=== PATIENT | female | born 1970 | race Caucasian/White ===

== ENCOUNTER 2016-10-03 16:42 | Emergency (ER) | payer OTHER ==
[2016-10-03 17:06] VITALS: BP 141/86; PULSE 96; RESP 18; TEMP 98.5
--- NOTE | 2016-10-03 17:08 | ED ---
General Adult HPI - General Chief complaint: Needlestick/Exposure Stated complaint: Needlestick-[facility] Time Seen by Provider: 10/03/16 17:03 Source: patient, RN notes reviewed, old records reviewed Mode of arrival: ambulatory Limitations: no limitations - History of Present Illness Initial comments: Patient is a 46 year old female chief complaint of a needle stick injury while performing an autopsy of the morning. Patient reports that her fourth left finger tip was hit with edge of a scalpel during the autopsy. Patient reports that she does have a tiny cut and it did bleed. Patient reports that they were able to obtain blood from the body and patient did test negative for HIV and hepatitis C. Patient reports that she did have a hepatitis B vaccination. She states that she was sent here to have her blood work drawn as well. Patient denies any history of blood borne illnesses. She states that the laceration stopped bleeding at this time. She denies any decreased range of motion of her finger or any swelling or redness.Patient denies any recent fever, chills, shortness of breath, chest pain, back pain, abdominal pain, nausea vomiting, numbness or tingling, dysuria or hematuria, constipation or diarrhea, headaches or visual changes, or any other current symptoms - Related Data Allergies Allergy/AdvReac Type Severity Reaction Status Date / Time No Known Allergies Allergy Verified 10/03/16 17:23 Review of Systems ROS Statement: Those systems with pertinent positive or pertinent negative responses have been documented in the HPI. ROS Other: All systems not noted in ROS Statement are negative. Past Medical History Past Medical History: Hypertension History of Any Multi-Drug Resistant Organisms: None Reported Past Surgical History: Cholecystectomy Past Psychological History: No Psychological Hx Reported Smoking Status: Never smoker Past Alcohol Use History: None Reported Past Drug Use History: None Reported General Exam - General Exam Comments Initial Comments: well appearing 46 year old female, no distress. Limitations: no limitations General appearance: alert, in no apparent distress Head exam: Present: atraumatic, normocephalic, normal inspection Eye exam: Present: normal appearance, PERRL, EOMI. Absent: scleral icterus, conjunctival injection, periorbital swelling ENT exam: Present: normal exam, mucous membranes moist Neck exam: Present: normal inspection. Absent: tenderness, meningismus, lymphadenopathy Respiratory exam: Present: normal lung sounds bilaterally. Absent: respiratory distress, wheezes, rales, rhonchi, stridor Cardiovascular Exam: Present: regular rate, normal rhythm, normal heart sounds. Absent: systolic murmur, diastolic murmur, rubs, gallop, clicks GI/Abdominal exam: Present: soft, normal bowel sounds. Absent: distended, tenderness, guarding, rebound, rigid Extremities exam: Present: normal inspection, full ROM, normal capillary refill. Absent: tenderness, pedal edema, joint swelling, calf tenderness Back exam: Present: normal inspection Neurological exam: Present: alert, oriented X3, CN II-XII intact Psychiatric exam: Present: normal affect, normal mood Skin exam: Present: warm, dry, intact, normal color. Absent: rash Course Vital Signs 10/03/16 17:03 Temperature 98.5 F Pulse Rate 96 Respiratory 18 Rate Blood Pressure 141/86 O2 Sat by Pulse 98 Oximetry Medical Decision Making - Medical Decision Making Patient is a 46 year old female chief complaint of a needle stick injury while performing an autopsy of the morning. Patient reports that her fourth left finger tip was hit with edge of a scalpel during the autopsy. Patient reports that she does have a tiny cut and it did bleed. Patient reports that they were able to obtain blood from the body and patient did test negative for HIV and hepatitis C. Patient reports that she did have a hepatitis B vaccination. Patient's lab work was obtained. Patient does test positive for the hepatitis B surface antigen she would if she is vaccinated. Patient's negative hepatitis B. Patient understands that she is follow-up with primary care provider if she is concerned for other prophylaxis. Patient understands treatment plan will comply. - Lab Data Lab Results 10/03/16 Range/Units 17:15 Hep Bs Antibody POSITIVE H (Negative) Hep C IgG Ab Negative (Negative) Disposition Clinical Impression: Needle stick injury of finger Disposition: HOME SELF-CARE Condition: Good Instructions: Postexposure Prophylaxis (ED), Body Substance Exposure (ED) Additional Instructions: Patient advised that we will inform her of the results once the labs tests are completed. Patient will be instructed to follow-up with primary care provider for further testing if needed in the next few months. Return the emergency Department if any alarming signs or symptoms occur. Referrals: None,Stated [Primary Care Provider] - 1-2 days Time of Disposition: 17:07
[2016-10-03 18:32] LABS: Hepatitis C Virus IgG Index 0.01
[2016-10-03 18:34] LABS: Hepatitis B Surface Antibody POSITIVE (Negative); Hepatitis C Virus IgG Ab Negative (Negative)
[2016-10-04 08:04] LABS: HIV-1/HIV-2 Ab Screen NONREAC (NON REAC)
== END 2016-10-03 17:24 | disposition home or self-care (01) ==
LOC: EC 16:42
DX: S69.92XA Unspecified injury of left wrist, hand and finger(s), initial encounter (principal); Z77.21 Contact with and (suspected) exposure to potentially hazardous body fluids; W46.1XXA Contact with contaminated hypodermic needle, initial encounter; Y99.0 Civilian activity done for income or pay
CPT/HCPCS: 36415; 86318; 86706; 86803; 87389; 99283

== ENCOUNTER → 2018-03-13 | Outpatient (CLI) | payer OTHER ==
--- NOTE | 2018-03-13 11:20 | US ---
EXAMINATION TYPE: US extremity left ankle, Achilles tendon DATE OF EXAM: 03/13/2018 COMPARISON: NONE CLINICAL HISTORY: 47-year-old female left posterior ankle pain for one month, patient felt a knot whi ch has resolved. M76.60 ACHILLES TENDONITIS. TECHNIQUE: Multiple sonographic images of the posterior left ankle for assessment of the Achilles ten don. FINDINGS: The Achilles tendon has normal smooth contour and normal fibrillar echo pattern. No evidence for tear . No effusion within the retrocalcaneal bursa. There is some hypoechogenicity at the Achilles myotend inous junction but comparison images to the contralateral side show a similar appearance. Finding sug gest anisotropy. Scanning was extended up into the mid calf. There is some hypoechogenicity deep to the Achilles tendon along the posterior aspect of the tibiotal ar and posterior subtalar joints with some mild hyperemia. Findings could represent some synovitis. IMPRESSION: 1. Scanning extended up into the mid calf. No evidence for Achilles tendon tear, significant tendinos is, or discrete abnormality of the lower triceps surae musculature. 2. There may be mild synovitis deep to the Achilles tendon in the posterior ankle joint.
== END | disposition home or self-care (01) ==
LOC: RADUSWWP 09:51
PROVIDERS: ATTEND Nurse Practitioner Adult Health
DX: M76.60 Achilles tendinitis, unspecified leg (principal)

== ENCOUNTER → 2018-03-19 | Outpatient (CLI) | payer OTHER ==
--- NOTE | 2018-03-19 13:46 | USB ---
Reason for exam: clinical finding. History: Patient has history of breast cancer at age 30. Family history of breast cancer in mother at age 22, breast cancer in maternal grandmother, and breast cancer in aunt. Physical Findings: Nurse did not find any significant physical abnormalities on exam. US Breast BILAT Right complete breast ultrasound includes all four quadrants, the retroareolar region and axilla. Finding demonstrates a 0.3 x 0.2 x 0.2 cm oval cystic lesion at 10 o'clock this is a cyst with increased through transmission. A 0.5 x 0.2 x 0.6 cm oval solid lesion thought to be a skin lesion. Left limited breast ultrasound including focal area of concern, retroareolar and axilla demonstrates a 0.8 x 0.3 x 0.7 cm oval cystic lesion at 4 o'clock and a 0.5 x 0.3 x 0.6 cm oval cystic lesion at 8 o'clock these are both thought to be skin lesions too. These results were verbally communicated with the patient and result sheet given to the patient on 03/19/18. ASSESSMENT: Incomplete: need additional imaging evaluation, BI-RAD 0 RECOMMENDATION: Follow-up diagnostic mammogram and surgical consultation of both breasts.
--- NOTE | 2018-03-19 13:55 | MM ---
Reason for exam: clinical finding. History: Patient has history of breast cancer at age 30. Family history of breast cancer in mother at age 22, breast cancer in maternal grandmother, and breast cancer in aunt. Physical Findings: Nurse did not find any significant physical abnormalities on exam. MG 3D Diag Mammo W/Cad MADELYN Bilateral CC and MLO view(s) were taken. Technologist: Apurva Chapman, RT (R)(M) No prior studies available for comparison. The breast tissue is heterogeneously dense. This may lower the sensitivity of mammography. There are benign appearing bilateral calcifications. Post therapy changes on the right breast. Multiple skin lesions on ultrasound likelllly epidermal inclusion cysts, surgical consultation is recommended. These results were verbally communicated with the patient and result sheet given to the patient on 03/19/18. ASSESSMENT: Benign, BI-RAD 2 RECOMMENDATION: Routine screening mammogram of both breasts in 1 year.
== END | disposition home or self-care (01) ==
LOC: RADUSWWP 08:58
PROVIDERS: ATTEND Internal Medicine
DX: R92.8 Other abnormal and inconclusive findings on diagnostic imaging of breast (principal); N61.1 Abscess of the breast and nipple
CPT/HCPCS: 77066; 76641; G0279; 77062

== ENCOUNTER → 2018-04-20 | Outpatient (CLI) | payer OTHER ==
[2018-04-20 09:36] VITALS: BP 141/94; PULSE 81; RESP 16; TEMP 98; BMI 31.8
--- NOTE | 2018-04-20 09:51 | P.GSHP ---
History of Present Illness H&P Date: 04/20/18 Patient is a 47 year old white female with a complaint of three abscess areas located in the inner left breast, lateral left breast, and under the area of the right breast. The lesion between the breast is been present for approximately 2 years and she lanced it herself and drained a large amount of purulent material. That under her right breast is been present for at least 2 years. The lesion in the lateral left breast has been present for approximately a year and has been lanced twice. This was done at an urgent care center. At this time the patient is frustrated with the recurrent abscess formation and wishes these to be resolved. She had a bilateral mammogram performed in March 2018 which revealed multiple skin lesions likely epidermal inclusion cysts and no lesions of concern for cancer. She also had an ultrasound done of both of her breast which revealed in the right breast a 0.3 cm cystic lesion at 10:00, and a 0.5 cm solid lesion thought to be a skin lesion. Limited left breast ultrasound revealed a 0.8 cm cystic lesion at 4:00 and a 0.5 cm cystic lesion at 8:00 these are both thought to be skin lesions as well. Patient does have a history of trauma to her right breast approximately 2 months ago. It did become ecchymotic but this has resolved. The patient is status post right breast biopsy at the age of 30 for benign lesion. No nipple discharge or changes of concern. Family history: 1. Mother of breast cancer at the age of 22 2. Biologic grandmother on her mother's side bilateral mastectomy 3. Biologic maternal uncle: Lung, testicular cancer 4. Second maternal uncle: Prostate cancer 5. Third maternal uncle: Testicular cancer 6. 11-year-old daughter: Neuroblastoma she is a survivor Does not know fathers history, he was not named on the certificate Hormonal History: menarche: 13 periods regular : 5, 4 children, 1st miscarrage, first full term at 24, breast fed: all of them BCP: age [age] hormones: none Past surgical history: 1. Cholecystectomy 2. Right breast biopsy 3. Left knee 3 times, right knee 2 times no knee replacements 4. tubligation 5. Medical history: 1. HTN Social History: smoke: none alcohol: none drugs: none - Constitutional Constitutional: Denies chills, Denies fever - EENT Eyes: denies blurred vision, denies pain Ears: bilateral: decreased hearing (right worse than left), deny: tinnitus Ears, nose, mouth and throat: Reports headache, Denies sore throat - Breasts Breasts: bilateral: as per HPI - Cardiovascular Cardiovascular: Reports high blood pressure - Respiratory Respiratory: Denies cough, Denies 7 - Gastrointestinal Gastrointestinal: Denies abdominal pain, Denies diarrhea, Denies nausea, Denies vomiting - Genitourinary (Female) Genitourinary: Reports kidney stones - Menstruation Menstruation: Reports period normal - Musculoskeletal Musculoskeletal: Denies myalgias - Integumentary Integumentary: Denies pruritus, Denies rash - Neurological Neurological: Denies numbness, Denies weakness - Psychiatric Psychiatric: Denies anxiety, Denies depression - Endocrine Comment: working two jobs Endocrine: Reports fatigue, Denies weight change - Hematologic/Lymphatic Comment: none - Allergic/Immunologic Comment: none Past Medical History Past Medical History: Hypertension History of Any Multi-Drug Resistant Organisms: None Reported Past Surgical History: Cholecystectomy Past Psychological History: No Psychological Hx Reported Smoking Status: Never smoker Past Alcohol Use History: None Reported Past Drug Use History: None Reported Medications and Allergies Home Medications Medication Instructions Recorded Confirmed Type Hydrochlorothiazide 25 mg PO QAM 04/20/18 04/20/18 History Lisinopril-Hctz 20-12.5 mg 1 tab PO QAM 04/20/18 04/20/18 History [Zestoretic 20-12.5] Allergies Allergy/AdvReac Type Severity Reaction Status Date / Time No Known Allergies Allergy Verified 04/20/18 09:26 Surgical - Exam - General well developed, well nourished, no distress - Eyes normal ocular movement, no icteric - ENT no hearing loss, no congestion - Neck no masses, trachea midline - Respiratory normal respiratory effort, clear to auscultation - Cardiovascular Rhythm: regular Heart Sounds: normal: S1, S2 - Abdomen Abdomen: soft, non tender, no guarding, no rigid, no rebound - Neurologic no disoriented, no combative - Musculoskeletal normal gait, normal posture - Psychiatric oriented to time, oriented to person, oriented to place, speech is normal, memory intact breast exam: right: Multi-positional exam fibrocystic changes, and 6:00 there is what appears to be a sebaceous cyst Right axilla: No adenopathy of concern Left breast: Upper inner breast that appears to be sebaceous cyst, lateral breast at approximately 3:00 a second sebaceous cyst, multiple positional exam fibrocystic changes Left axilla: No adenopathy of concern Results Mammogram and ultrasound reports reviewed Assessment and Plan Assessment: Impression: 1. Multiple sebaceous cysts bilateral breasts 2. Prior history of breast abscesses 3. Hypertension Plan: 1. Surgical excision of sebaceous cyst 2. Medical management of hypertension Risk and benefits of surgical intervention discussed with the patient and she wishes to proceed. Cc: Dr. Robles, Kaylynn Reis
== END | disposition home or self-care (01) ==
LOC: WWCWWP 09:10
PROVIDERS: ATTEND Surgery
DX: Z53.9 Procedure and treatment not carried out, unspecified reason (principal)

== ENCOUNTER 2018-05-12 07:01 | Day surgery (SDC) | payer OTHER ==
[2018-05-04 15:17] VITALS: BMI 33.8
[~2018-05-12 07:01] MED LIST: HEPARIN SODIUM,PORCINE 5,000 UNIT/ML 1 ML VIAL SQ ONE; LACTATED RINGERS 1,000 ML IV SCH; Pre Op ABX Message 1 EACH MISC MISCELLANE ONE
[2018-05-12] MEDS ORDERED: LIDOCAINE 1% 20 ML VIAL (10MG/ML) FOR IV START INTRADERMA ONE (07:42)
[2018-05-12] MEDS ORDERED: DEXAMETHASONE SOD PHOSPHATE 10 MG/ML 1 ML VIAL IV ONE (07:49)
[2018-05-12] MEDS: ONDANSETRON 4 MG/2 ML VIAL IVP ONE ×2 (07:50→10:40)
[2018-05-12] MEDS ORDERED: ePHEDrine SULFATE/0.9% NACL/PF 50 MG/5 ML SYRINGE IV ONE (08:39)
[2018-05-12] MEDS ORDERED: PROPOFOL 10 MG/ML 20 ML VIAL IV ONE (08:39)
[2018-05-12] MEDS ORDERED: MIDAZOLAM 2 MG/2 ML VIAL ONE (08:39)
[2018-05-12] MEDS ORDERED: LIDOCAINE 1% INJ 10MG/ML (20 ML MDV) ONE (08:39)
[2018-05-12] MEDS ORDERED: HYDROmorphone (PF) 1 MG/ML ONE (08:39)
[2018-05-12] MEDS ORDERED: fentaNYL (PF) 50 MCG/ML 2 ML AMP ONE (08:39)
[2018-05-12] MEDS ORDERED: SODIUM CHLORIDE 0.9% 50 ML with ceFAZolin 2,000 MG IV ONE ×2 (08:49)
[2018-05-12] MEDS ORDERED: HEPARIN SODIUM,PORCINE 5,000 UNIT/ML 1 ML VIAL SQ ONE (09:02)
[2018-05-12] MEDS ORDERED: LIDOCAINE 1% INJ 10MG/ML (20 ML MDV) SQ ONE ×3 (09:13→09:30)
--- NOTE | 2018-05-12 09:35 | P.OP ---
Date of Procedure: 05/12/18 Preoperative Diagnosis: two cystic lesions left breast, one cystic lesion right breast subq area Postoperative Diagnosis: same Procedure(s) Performed: excision of cystic lesions right and left breast Anesthesia: CHARBELA Surgeon: Stephanie Whitehead Estimated Blood Loss (ml): 1 Pathology: other (subq lesions) Condition: stable Disposition: PACU Indications for Procedure: cystic lesions bilateral breast increase in size Operative Findings: cystic lesions bilateral breast Description of Procedure: The patient was taken to the operating room and following induction of anesthesia bilateral breast reprepped and draped in a sterile fashion. The left breast was approached initially. The inferior lesion wasn't approximately 1.5 x 1.2 cm in size excision was carried through the skin and into the subcutaneous tissue. The deep tissues were closed with a 3-0 Vicryl suture followed by closure of the skin with 4-0 Monocryl. The second lesion was in the left breast and this was in the medial aspect of the breast. This was approximately 1 cm x 8 mm. Wide excision was performed. Excision was carried through the skin and subcutaneous tissue. The deep tissues were closed with a 3 -0 Vicryl suture skin was closed with a 4-0 Monocryl and a nylon on the skin. The right breast lesion was also approached this lesion was approximately 1.5 x 1.2 cm in size. Wide excision was performed through the skin and into the subcutaneous tissue. Deep tissues were closed with 3-0 Vicryl suture and the skin was closed with a 4-0 Monocryl. The patient tolerated procedure in stable condition all lesions were sent to pathology. 1% lidocane injected into the area of resection.
--- NOTE | 2018-05-12 09:37 | P.DS ---
Providers Attending physician: Stephanie Whitehead Primary care physician: He Robles Plan - Discharge Summary New Discharge Prescriptions: No Action Lisinopril-Hctz 20-12.5 mg [Zestoretic 20-12.5] 1 tab PO QAM Discharge Medication List Lisinopril-Hctz 20-12.5 mg [Zestoretic 20-12.5] 1 tab PO QAM 04/20/18 [History] Follow up Appointment(s)/Referral(s): Stephanei Whitehead MD [STAFF PHYSICIAN] - 1 Week Activity/Diet/Wound Care/Special Instructions: do not drive today Discharge Disposition: HOME SELF-CARE
[2018-05-12 09:59] VITALS: RESP 16; TEMP 98.2
[2018-05-12] MEDS: HYDROmorphone 1 MG/ML 1 ML SYRINGE IVP ONE ×4 (10:09→10:49)
[2018-05-12] MEDS ORDERED: ACETAMINOPHEN TAB 325 MG TAB PO ONE (11:54)
[2018-05-12 12:26] VITALS: BP 128/74; PULSE 89
== END 2018-05-12 13:04 | disposition home or self-care (01) ==
LOC: OR 07:01
PROVIDERS: ATTEND Surgery
DX: N60.82 Other benign mammary dysplasias of left breast (principal); N60.81 Other benign mammary dysplasias of right breast; Z80.3 Family history of malignant neoplasm of breast; I10 Essential (primary) hypertension; Z79.899 Other long term (current) drug therapy; Z87.442 Personal history of urinary calculi
CPT/HCPCS: 81025; 88304; 19120; J2250; J1644; J1100; J2405; J2001; J3010; J1170; J0690; J2704

== ENCOUNTER → 2018-05-21 | Outpatient (CLI) | payer OTHER ==
[2018-05-21 15:07] VITALS: BP 136/88; PULSE 98; RESP 12; BMI 32.9
--- NOTE | 2018-05-21 15:33 | P.PN ---
Progress Note - Text Progress Note Date: 05/21/18 The patient is a 47-year-old white female who presents for postoperative evaluation status post excision of 3 subcutaneous nodules between the right and left breasts. The patient is doing well at this time without complaints. All areas were consistent with epidermal inclusion cysts. Physical exam: Incision clean and dry right breast Incision clean and dry left breast inferior Incision clean and dry left breast medial, there is a small portion of the stitch that is extruding and this was removed Impression/plan: 1. Bilateral breast epidermal inclusion cyst removed Plan: 1. Follow-up as needed CC: Dr. Robles
== END | disposition home or self-care (01) ==
LOC: WWCWWP 14:58
PROVIDERS: ATTEND Surgery
DX: Z53.9 Procedure and treatment not carried out, unspecified reason (principal)

== ENCOUNTER → 2018-07-15 | Outpatient (CLI) | payer OTHER ==
--- NOTE | 2018-07-15 12:06 | XR ---
Right elbow HISTORY: Right elbow pain, swelling 3 views of the right elbow Bone mineralization, joint spaces and alignment are maintained. No fracture or dislocation. No eviden t joint effusion. IMPRESSION: Normal right elbow
== END ==
LOC: RADXRMAIN 10:14
PROVIDERS: ATTEND Nurse Practitioner Adult Health
DX: M77.11 Lateral epicondylitis, right elbow (principal)

== ENCOUNTER 2018-12-02 07:38 | Emergency (ER) | payer OTHER ==
[2018-12-02 08:07] LABS: Basophils % (A) 1 %; Eosinophils # (A) 0.1 k/uL (0-0.7); Eosinophils % (A) 2 %; HCT 40.8 % (34.0-46.0); Lymphocytes # (A) 1.9 k/uL (1.0-4.8); Lymphocytes % (A) 27 %; MCHC 34.2 g/dL (31.0-37.0); MCV 87.8 fL (80.0-100.0); Mean Platelet Volume 6.5; Monocytes # (A) 0.3 k/uL (0-1.0); Monocytes % (A) 4 %; Neutrophils # (A) 4.6 k/uL (1.3-7.7); Neutrophils % (A) 65 %; Platelet Count 266 k/uL (150-450); RBC 4.65 m/uL (3.80-5.40); RDW 12.1 % (11.5-15.5)
[2018-12-02] MEDS ORDERED: SODIUM CHLORIDE 0.9% 1,000 ML IV ONE ×2 (08:07→08:55)
[2018-12-02] MEDS ORDERED: KETOROLAC 30 MG/ML 1 ML VIAL IVP STA ×2 (08:07→10:46)
[2018-12-02] MEDS ORDERED: HYDROmorphone 0.5 MG/0.5 ML SYRINGE IVP STA (08:11)
[2018-12-02] MEDS ORDERED: ONDANSETRON 4 MG/2 ML VIAL IVP STA (08:11)
[2018-12-02 08:16] LABS: ALT 23 U/L (9-52); AST 18 U/L (14-36); Albumin 4.4 g/dL (3.5-5.0); Alkaline Phosphatase 47 U/L (38-126); Anion Gap 13 mmol/L; Blood Urea Nitrogen 11 mg/dL (7-17); Calcium 9.5 mg/dL (8.4-10.2); Carbon Dioxide 23 mmol/L (22-30); Chloride 102 mmol/L (98-107); Glucose 203 mg/dL (74-99); Potassium 3.7 mmol/L (3.5-5.1); Sodium 138 mmol/L (137-145); Total Bilirubin 0.7 mg/dL (0.2-1.3)
--- NOTE | 2018-12-02 08:17 | ED ---
Abdominal Pain HPI - General Chief Complaint: Abdominal Pain Stated Complaint: kidney stones Time Seen by Provider: 12/02/18 08:07 Source: patient, RN notes reviewed Mode of arrival: ambulatory Limitations: no limitations - History of Present Illness Initial Comments: This is a 48-year-old female presents emergency Department with chief complaint right flank pain. Patient states started around 6 AM this morning. Patient is to send onset of pain. She does have a history kidney symptoms states this feels similar. Patient with slight nausea no vomiting. Patient denies any change in bowel habits including diarrhea constipation. Patient has urinary frequency no noted hematuria. Patient has fevers chills. Patient had prior abdominal surgeries include , tubal ligation. - Related Data Home Medications Medication Instructions Recorded Confirmed Cranberry Fruit Concentrate [Azo 500 mg PO DAILY PRN 12/02/18 12/02/18 Cranberry] Lisinopril-Hctz 20-25 mg 1 tab PO DAILY 12/02/18 12/02/18 [Zestoretic 20-25] metFORMIN HCL [Glucophage] 500 mg PO BID 12/02/18 12/02/18 Previous Rx's Medication Instructions Recorded Hydrocodone/Acetaminophen [[place] 1 tab PO Q6HR PRN #12 tab 12/02/18 5-325] Ketorolac [Toradol] 10 mg PO Q8HR #15 tab 12/02/18 Ondansetron Odt [Zofran Odt] 4 mg PO Q8HR PRN #10 tab 12/02/18 Tamsulosin [Flomax] 0.4 mg PO DAILY #7 cap 12/02/18 Allergies Allergy/AdvReac Type Severity Reaction Status Date / Time No Known Allergies Allergy Verified 12/02/18 07:59 Review of Systems ROS Statement: Those systems with pertinent positive or pertinent negative responses have been documented in the HPI. ROS Other: All systems not noted in ROS Statement are negative. Past Medical History Past Medical History: Diabetes Mellitus, Hypertension Additional Past Medical History / Comment(s): steroids May 2018-tx tendon elbow,jeff breast abscess kidney stones History of Any Multi-Drug Resistant Organisms: None Reported Past Surgical History: Section, Cholecystectomy, Orthopedic Surgery, Tubal Ligation Additional Past Surgical History / Comment(s): right breast surgery: 2000,3 left knee surg,2 rt knee surg. Past Anesthesia/Blood Transfusion Reactions: No Reported Reaction Past Psychological History: No Psychological Hx Reported Smoking Status: Never smoker Past Alcohol Use History: None Reported Past Drug Use History: None Reported - Past Family History Mother Family Medical History: Cancer Additional Family Medical History / Comment(s): breast cancer: at the age of 22 General Exam General appearance: alert, in no apparent distress, other (Patient appears uncomfortable) Head exam: Present: atraumatic, normocephalic, normal inspection Eye exam: Present: normal appearance, PERRL, EOMI. Absent: scleral icterus, conjunctival injection, periorbital swelling ENT exam: Present: normal exam, mucous membranes moist Respiratory exam: Present: normal lung sounds bilaterally. Absent: respiratory distress, wheezes, rales, rhonchi, stridor Cardiovascular Exam: Present: regular rate, normal rhythm, normal heart sounds. Absent: systolic murmur, diastolic murmur, rubs, gallop, clicks GI/Abdominal exam: Present: soft, tenderness (Mild right flank), normal bowel sounds. Absent: distended, guarding, rebound, rigid Back exam: Present: CVA tenderness (R). Absent: CVA tenderness (L) Skin exam: Present: warm, dry, intact, normal color. Absent: rash Course Vital Signs 12/02/18 12/02/18 07:42 10:05 Temperature 97.7 F 98.7 F Pulse Rate 85 66 Respiratory 26 H 18 Rate Blood Pressure 165/85 107/73 O2 Sat by Pulse 99 93 L Oximetry - Reevaluation(s) Reevaluation #1: 12/02/18 08:56 Patient reevaluated states that her pain has greatly improved at this time. Patient updated on current lab results and x-ray results. Medical Decision Making - Medical Decision Making 40-year-old female presented for right flank pain. Patient had laboratory, x- ray and urinalysis. Urinalysis reveals multiple red cells. She is nitrite positive secondary to taking Azo there is no wbc's. Patient not be treated for urinary tract infection as there is no evidence. Patient has a history kidney stones and symptoms are consistent. Patient we discharged with pain medication, Flomax, Toradol. Return parameters were discussed. - Lab Data Result diagrams: 12/02/18 07:50 12/02/18 07:50 Lab Results 12/02/18 12/02/18 12/02/18 Range/Units 07:50 07:50 09:20 WBC 7.0 (3.8-10.6) k/uL RBC 4.65 (3.80-5.40) m/uL Hgb 14.0 (11.4-16.0) gm/dL Hct 40.8 (34.0-46.0) % MCV 87.8 (80.0-100.0) fL MCH 30.0 (25.0-35.0) pg MCHC 34.2 (31.0-37.0) g/dL RDW 12.1 (11.5-15.5) % Plt Count 266 (150-450) k/uL Neutrophils % 65 % Lymphocytes % 27 % Monocytes % 4 % Eosinophils % 2 % Basophils % 1 % Neutrophils # 4.6 (1.3-7.7) k/uL Lymphocytes # 1.9 (1.0-4.8) k/uL Monocytes # 0.3 (0-1.0) k/uL Eosinophils # 0.1 (0-0.7) k/uL Basophils # 0.0 (0-0.2) k/uL Sodium 138 (137-145) mmol/L Potassium 3.7 (3.5-5.1) mmol/L Chloride 102 (98-107) mmol/L Carbon Dioxide 23 (22-30) mmol/L Anion Gap 13 mmol/L BUN 11 (7-17) mg/dL Creatinine 0.59 (0.52-1.04) mg/dL Est GFR (CKD-EPI)AfAm >90 (>60 ml/min/1.73 sqM) Est GFR (CKD-EPI)NonAf >90 (>60 ml/min/1.73 sqM) Glucose 203 H (74-99) mg/dL Calcium 9.5 (8.4-10.2) mg/dL Total Bilirubin 0.7 (0.2-1.3) mg/dL AST 18 (14-36) U/L ALT 23 (9-52) U/L Alkaline Phosphatase 47 (38-126) U/L Total Protein 7.0 (6.3-8.2) g/dL Albumin 4.4 (3.5-5.0) g/dL Urine Color Dark Brown Urine Appearance Cloudy H (Clear) Urine pH 5.5 (5.0-8.0) Ur Specific [place] 1.020 (1.001-1.035) Urine Protein Trace H (Negative) Urine Glucose (UA) Negative (Negative) Urine Ketones 1+ H (Negative) Urine Blood Moderate H (Negative) Urine Nitrite Positive H (Negative) Urine Bilirubin Negative (Negative) Urine Urobilinogen 2.0 (<2.0) mg/dL Ur Leukocyte Esterase Negative (Negative) Urine RBC 90 H (0-5) /hpf Ur Squamous Epith Cells 3 (0-4) /hpf Urine Bacteria Rare H (None) /hpf Urine Mucus Occasional H (None) /hpf Disposition Clinical Impression: Kidney stone Disposition: HOME SELF-CARE Condition: Stable Instructions (If sedation given, give patient instructions): Kidney Stones (ED) Additional Instructions: Please return to the Emergency Department if symptoms worsen or any other concerns. Prescriptions: Tamsulosin [Flomax] 0.4 mg PO DAILY #7 cap Hydrocodone/Acetaminophen [[place] 5-325] 1 tab PO Q6HR PRN #12 tab PRN Reason: Pain Ketorolac [Toradol] 10 mg PO Q8HR #15 tab Ondansetron Odt [Zofran Odt] 4 mg PO Q8HR PRN #10 tab PRN Reason: Nausea Is patient prescribed a controlled substance at d/c from ED?: Yes When asked, does pt state using other controlled substances?: No If prescribed controlled substance>3 days was MAPS reviewed?: Prescribed <3 Days If opioid is for acute pain is fill amount 7 days or less?: Yes If Rx opioid, was Start Talking consent form obtained?: Yes Referrals: He Robles MD [Primary Care Provider] - 1-2 days Time of Disposition: 10:49
--- NOTE | 2018-12-02 08:43 | XR ---
EXAMINATION TYPE: XR KUB DATE OF EXAM: 12/02/2018 8:39 AM CLINICAL HISTORY: History of bilateral kidney stones presents with right flank pain. TECHNIQUE: Two Upright KUB images of the abdomen are obtained. COMPARISON: None. FINDINGS: Scattered gas is seen in non-distended small bowel loops. Gas and fecal material is seen in non-distended colon. Rounded densities in bilateral pelvis favor phleboliths. Cholecystectomy clips are present. No pneumoperitoneum is seen. Lung bases are clear. Osseous structures are intact. IMPRESSION: Overall nonobstructive bowel gas pattern. No definite nephrolithiasis.
[2018-12-02 10:07] VITALS: RESP 18; TEMP 98.7
[2018-12-02 10:31] LABS: Appearance,Urine Cloudy (Clear); Bacteria,Urine Rare /hpf; Bilirubin,Urine Negative (Negative); Blood,Urine Moderate (Negative); Color,Urine Dark Brown; Glucose,Urine (UA) Negative (Negative); Ketones,Urine 1+ (Negative); Leukocyte Esterase,Urine Negative (Negative); Mucus,Urine Occasional /hpf; Nitrite,Urine Positive (Negative); PH, Urine 5.5 (5.0-8.0); Protein,Urine Trace (Negative); RBC,Urine 90 /hpf (0-5); Squamous Epithelial Cell,Urine 3 /hpf (0-4)
[2018-12-02 10:56] VITALS: BP 121/72; PULSE 77
== END 2018-12-02 11:02 | disposition home or self-care (01) ==
LOC: EC 07:38
DX: N20.0 Calculus of kidney (principal); E11.9 Type 2 diabetes mellitus without complications; I10 Essential (primary) hypertension; Z90.49 Acquired absence of other specified parts of digestive tract; Z98.51 Tubal ligation status; Z79.84 Long term (current) use of oral hypoglycemic drugs; Z79.899 Other long term (current) drug therapy
CPT/HCPCS: 36415; 80053; 85025; 81001; 74018; 99284; 96374; 96375 ×2; 96376; 96361 ×2; J2405; J1885; J1170

== ENCOUNTER → 2019-04-30 | Outpatient (CLI) | payer OTHER ==
--- NOTE | 2019-04-30 14:44 | US ---
EXAMINATION TYPE: US thyroid st tissue head/neck DATE OF EXAM: 04/30/2019 COMPARISON: NONE CLINICAL HISTORY: R22.0 mass and lump. Hypoechoic mass posterior neck measuring 2.5 x 0.8 x 1.9cm. This is not a typical lymph node. This i s solid. Consider additional evaluation with CT neck with contrast. IMPRESSION: 1. Hypoechoic mass which is in determinate.
== END | disposition home or self-care (01) ==
LOC: RADUSWWP 08:11
PROVIDERS: ATTEND Internal Medicine
DX: R22.1 Localized swelling, mass and lump, neck (principal)
CPT/HCPCS: 76536

== ENCOUNTER → 2019-05-04 | Outpatient (CLI) | payer OTHER ==
[2019-05-04 17:56] LABS: African American GFR (CKD) 124.9 (60.0-200.0)
== END | disposition home or self-care (01) ==
LOC: LABWHC1 10:25
PROVIDERS: ATTEND Nurse Practitioner Adult Health
DX: R68.89 Other general symptoms and signs (principal)
CPT/HCPCS: 36415; 82565; 84520

== ENCOUNTER → 2019-06-08 | Outpatient (CLI) | payer OTHER ==
--- NOTE | 2019-06-08 10:37 | CT ---
EXAMINATION TYPE: CT soft tissue neck w con DATE OF EXAM: 06/08/2019 HISTORY: Abnormal clinical findings. Patient states there is a lump growing on the back of her neck. Finding is marked with a palpable BB marker. COMPARISON: NONE CT DLP: 351.30 mGycm. Automated Exposure Control for Dose Reduction was Utilized. TECHNIQUE: CT scan of the neck is performed with IV Contrast, patient injected with 100 ml mL of Iso zohreh 300, axial images are obtained, coronal and sagittal reformatted images are reviewed. FINDINGS: Airway: No gross abnormality seen. Parotid/submandibular glands: Enhancing left parotid gland mass measures 1.0 x 0.7 cm and is seen wit hin the superficial lobe of the left parotid gland. No definitive macroscopic fat to confirm an intra parotid lymph node. This lesion is indeterminate at this time. Carotid/Vascular Structures: There is a conventional three-vessel branch pattern of the aortic arch. No hemodynamically significant stenosis is seen of the carotid or vertebral vasculature. The right ve rtebral artery is slightly dominant. Osseous Structures: Straightening of usual cervical lordosis that may relate to muscular sprain/spasm or patient positioning. Very minimal multilevel uncovertebral hypertrophy of the cervical spine. No high-grade stenosis. Other: Corresponding to the palpable abnormality of the groin lump of the back of the patient's neck there is a right paracentral 2.2 x 1.2 cm nearly entirely fat attenuated lipomatous lesion on series 3 image 54. At the cranial margin of this there is a soft tissue nodule measuring 6 mm marked on imag e 58. This does not appear to represent avascular structure on coronal or sagittal images. This is lo cated approximately 1 cm deep to the skin surface. IMPRESSION: 1. Lipomatous lesion corresponds to the palpable abnormality of the right paracentral soft tissues of the neck. This is almost entirely fat containing and likely represents a benign lipoma however there is a 6 mm soft tissue nodule seen at the cranial aspect. If there is continued interval growth MRI w ith and without contrast could assess for enhancement of the nodular component. This is overall favor ed to be benign at this time. 2. 1.0 cm left parotid enhancing indeterminant lesion. MRI could also assess characteristics of this lesion as this does not definitively contain macroscopic fat and does not appear as an intraparotid l ymph node.
== END | disposition home or self-care (01) ==
LOC: RADCTMAIN 08:00
PROVIDERS: ATTEND Internal Medicine
DX: K11.8 Other diseases of salivary glands (principal); R93.89 Abnormal findings on diagnostic imaging of other specified body structures
CPT/HCPCS: 70491; Q9967

== ENCOUNTER → 2020-06-08 | Outpatient (CLI) | payer OTHER ==
--- NOTE | 2020-06-09 11:49 | XR ---
Left knee HISTORY: Left knee pain 3 views the left knee There is joint space loss in the medial compartment. Bone mineralization and alignment are maintained . No fracture or dislocation. No evident joint effusion. IMPRESSION: Joint space loss may be indicative of mild arthropathy, consider alternate imaging.
== END | disposition home or self-care (01) ==
LOC: RAD 16:02
PROVIDERS: ATTEND Nurse Practitioner Adult Health
DX: M25.862 Other specified joint disorders, left knee (principal)

== ENCOUNTER → 2020-06-30 | Outpatient (CLI) | payer OTHER ==
--- NOTE | 2020-06-30 22:21 | MR ---
EXAMINATION TYPE: MR knee LT wo con DATE OF EXAM: 06/30/2020 COMPARISON: Left knee x-ray June 08, 2020 HISTORY: Lt knee posterior pain, hx of prior surgery, xrays on pacs TECHNIQUE: Multiplanar, multisequence imaging of the left knee is performed without IV contrast. FINDINGS: MEDIAL MENISCUS: Posterior horn is intact without tear. Anterior horn is markedly truncated in size, presumed product of prior near-complete surgical removal. LATERAL MENISCUS: Anterior and posterior horns are intact without tear. CRUCIATE LIGAMENTS: The anterior and posterior cruciate ligaments are intact and unremarkable. COLLATERAL LIGAMENTS: The medial collateral ligament and lateral collateral ligament complex are inta ct and unremarkable. EXTENSOR MECHANISM: Visualized quadriceps and patellar tendons are intact. EFFUSION: No significant suprapatellar joint effusion. POPLITEAL CYST: No popliteal/magana cyst. TRICOMPARTMENT SPACES: Mild narrowing patellofemoral and medial tibiofemoral compartments. No signifi cant spurring. CARTILAGE: Tricompartment articular cartilage is preserved. BONE MARROW SIGNAL: No focal abnormal marrow signal is appreciated. OTHER: No additional significant abnormality is appreciated. IMPRESSION: Evidence of prior surgery anterior horn medial meniscus. No recurrent meniscal or ligamen tous tear is seen.
== END | disposition home or self-care (01) ==
LOC: RADMRIMAIN 19:24
PROVIDERS: ATTEND Nurse Practitioner Adult Health
DX: M25.562 Pain in left knee (principal); Z98.890 Other specified postprocedural states

== ENCOUNTER → 2020-07-11 | Outpatient (CLI) | payer OTHER | END | disposition home or self-care (01) | LOC: LABWHC1 12:25 | PROVIDERS: ATTEND Nurse Practitioner Adult Health | DX: Z20.828 Contact with and (suspected) exposure to other viral communicable diseases (principal); J06.9 Acute upper respiratory infection, unspecified | CPT/HCPCS: U0003; C9803 ==

== ENCOUNTER → 2021-04-03 | Outpatient (CLI) | payer OTHER ==
--- NOTE | 2021-04-03 13:57 | US ---
EXAMINATION TYPE: US mass soft tissue chest/back DATE OF EXAM: 04/03/2021 COMPARISON: NONE CLINICAL HISTORY: M25.512 Pain in left shoulder. Palpable left upper back x 2 weeks Area of concern scanned. Prominent area seen, nonvascular = 5.1 x 3.7 x 2.1 cm. Contralateral images taken. IMPRESSION: 1. Large circumscribed homogenous area may be a lipoma at the level of concern.
== END | disposition home or self-care (01) ==
LOC: RADUSWWP 10:48
PROVIDERS: ATTEND Family Medicine
DX: M25.512 Pain in left shoulder (principal); R22.32 Localized swelling, mass and lump, left upper limb

== ENCOUNTER → 2021-04-16 | Day surgery (SDC) | payer OTHER ==
[2021-04-13 09:37] VITALS: BMI 31.3
[~2021-04-16] MED LIST changes: +BUPIVACAINE (PF) 0.25% 30 ML VIAL SQ ONE; +DEXAMETHASONE SOD PHOSPHATE 4 MG/ML 1 ML VIAL IV ONE; -HEPARIN SODIUM,PORCINE 5,000 UNIT/ML 1 ML VIAL SQ ONE; +LIDOCAINE 1% (10MG/ML) FOR IV START INTRADERMA ONE; +LIDOCAINE 1% INJ 10MG/ML (20 ML MDV) ONE; +MIDAZOLAM 2 MG/2 ML VIAL ONE; +ONDANSETRON 4 MG/2 ML VIAL IVP ONE; +PHENYLEPHRINE-0.9% NACL SYG 1,000 MCG/10 ML SYRINGE ONE; +PROPOFOL 10 MG/ML 20 ML VIAL IV ONE; +ROCURONIUM 10 MG/ML (5 ML VIAL) IV ONE; +SODIUM CHLORIDE 0.9% 100 ML with ceFAZolin 2,000 MG IV ONE; +SUCCINYLCHOLINE CHLORIDE 100 MG/5 ML SYR IV ONE; +fentaNYL (PF) 50 MCG/ML 2 ML AMP ONE; +traMADol 50 MG TAB ONE; +traMADol 50 MG TAB PO ONE
[2021-04-16 11:31] VITALS: RESP 16
[2021-04-16 11:46] LABS: Glucose,Whole Blood 151 mg/dL (75-99)
--- NOTE | 2021-04-16 14:02 | P.OP ---
Date of Procedure: 04/16/21 Preoperative Diagnosis: Lipoma left scapula and neck Postoperative Diagnosis: Lipoma left subscapular and neck Procedure(s) Performed: Excision of lipoma left subscapular and neck Anesthesia: LATOYA Surgeon: Ashley Burdick Estimated Blood Loss (ml): 5 Pathology: other Condition: stable Disposition: PACU Indications for Procedure: Patient presented with symptomatic lipoma Description of Procedure: The patient's taken the operative suite where she is prepped and draped in the usual sterile manner under general endotracheal anesthetic. Local anesthetic was instilled in the skin and subcutaneous tissues overlying each lipoma. An incision was then made over the lipoma under the left scapula. Dissection was carried out through the subcutaneous tissue and the lipoma was not encountered. It appeared it was submuscular so the trapezius and rhomboid were bluntly opened along the direction of their fibers. The lipoma was subscapular and laying along the ribs. It was dissected free. Small bleeding points were controlled with electrocautery. The muscle layers were allowed to fall back together and reapproximated using 3-0 Vicryl. Subcutaneous tissue was reapproximated using 3-0 Vicryl. The skin was closed with 4-0 Vicryl in a subcuticular manner. The lipoma in the neck was dissected free. Small bleeding points were controlled with electrocautery. The subcutaneous tissues and skin were closed in a similar manner. Steri-Strips and dressings were applied. She tolerated the procedure without difficulty and was taken to recovery room in satisfactory condition. According to or personnel, all counts were correct. Plan - Discharge Summary Discharge Rx Participant: Yes New Discharge Prescriptions: New traMADol HCL 1 - 2 mg PO Q6HR PRN #20 tablet PRN Reason: Pain No Action metFORMIN HCL [Glucophage] 1,000 mg PO HS lisinopriL [Prinivil] 20 mg PO DAILY hydroCHLOROthiazide [Hydrodiuril] 25 mg PO DAILY PRN PRN Reason: Edema Discharge Medication List metFORMIN HCL [Glucophage] 1,000 mg PO HS 12/02/18 [History] hydroCHLOROthiazide [Hydrodiuril] 25 mg PO DAILY PRN 04/13/21 [History] lisinopriL [Prinivil] 20 mg PO DAILY 04/13/21 [History] traMADol HCL 1 - 2 mg PO Q6HR PRN #20 tablet 04/16/21 [Rx] Activity/Diet/Wound Care/Special Instructions: Keeps the current dressings on until Friday. Then the dressing may be removed and you may shower. Ice to the incisions for 24-48 hours. The Steri- Strips may be removed in 1 week. You may take Tylenol or Motrin instead of the pain pills. Call if questions or concerns Discharge Disposition: HOME SELF-CARE
[2021-04-16 14:09] VITALS: TEMP 97.6
[2021-04-16] MEDS: HYDROmorphone 0.5 MG/0.5 ML SYRINGE IVP PRN ×3 (14:15→14:58)
[2021-04-16 14:37] LABS: Glucose,Whole Blood 176 mg/dL (75-99)
[2021-04-16 16:21] VITALS: BP 147/87; PULSE 79
== END | disposition home or self-care (01) ==
LOC: OR 10:57
PROVIDERS: ATTEND Surgery
DX: D17.1 Benign lipomatous neoplasm of skin and subcutaneous tissue of trunk (principal); D17.0 Benign lipomatous neoplasm of skin and subcutaneous tissue of head, face and neck; E11.9 Type 2 diabetes mellitus without complications; I10 Essential (primary) hypertension; Z79.84 Long term (current) use of oral hypoglycemic drugs; Z79.899 Other long term (current) drug therapy
CPT/HCPCS: 81025; 88304; 11406; 11422; J2250; J1100; J2405; J0690; J2001; J3010; J2370; J0330; J2704; J1170

== ENCOUNTER → 2022-04-12 | Outpatient (CLI) | payer OTHER ==
[2022-04-12 22:40] LABS: Potassium 3.6 mmol/L (3.5-5.5)
[2022-04-12 22:41] LABS: Basophils # (A) 0.05 X 10*3/uL (0.00-0.10); Basophils % (A) 0.6 %; Eosinophils # (A) 0.17 X 10*3/uL (0.04-0.35); HCT 37.7 % (37.2-46.3); Immature Grans, Automated 0.2 %; Lymphocytes # (A) 2.17 X 10*3/uL (0.90-5.00); Lymphocytes % (A) 25.3 %; MCH 28.5 pg (27.0-32.0); MCHC 31.8 g/dL (32.0-37.0); MCV 89.5 fL (80.0-97.0); Mean Platelet Volume 9.8 fL (9.5-12.2); Monocytes # (A) 0.69 X 10*3/uL (0.20-1.00); NRBC Per 100 WBC 0 /100 WBCS (0.0-0.0); Neutrophils # (A) 5.48 X 10*3/uL (1.80-7.70); Neutrophils % (A) 63.9 %; Platelet Count 341 X 10*3/uL (140-440); RBC 4.21 X 10*6/uL (4.10-5.20); RDW 13.6 % (11.5-14.5); WBC 8.58 X 10*3/uL (4.50-10.00)
== END | disposition home or self-care (01) ==
LOC: LABWHC1 15:24
PROVIDERS: ATTEND Orthopaedic Surgery
DX: Z01.812 Encounter for preprocedural laboratory examination (principal); E03.9 Hypothyroidism, unspecified; M23.92 Unspecified internal derangement of left knee
CPT/HCPCS: 36415; 80051; 85025

== ENCOUNTER 2022-04-18 10:56 | Day surgery (SDC) | payer OTHER ==
[2022-04-16 14:47] VITALS: BMI 33.6
--- NOTE | 2022-04-18 05:23 | HP ---
HISTORY AND PHYSICAL DATE OF SURGERY: 04/18/2022. HISTORY OF PRESENT ILLNESS: Stefany Morgan is a 51-year-old patient seen with progressive left knee pain. We discussed options. She elected to proceed with arthroscopy. Consent is obtained. PAST MEDICAL HISTORY: Hypertension, mep-gyrwczf-fuiqornbj diabetes. PAST SURGICAL HISTORY: Knee arthroscopy, cholecystectomy, section, breast surgery. DAILY MEDICATIONS: 1. Lisinopril/hydrochlorothiazide. 2. Metformin. ALLERGIES: None. SOCIAL HISTORY: She denies tobacco use. PHYSICAL EVALUATION OF THE LEFT KNEE: Range of motion 0 to 130. Mild effusion. Tenderness, medial joint line. Positive medial Tanja's. Ligaments stable. Hip rotation without pain. Distal neurovascular exam intact. RADIOGRAPHS: Left knee radiographs revealed mild osteoarthritis. MRI of left knee revealed a displaced medial meniscal tear and effusion. IMPRESSION: 1. Internal derangement of left knee with medial meniscal tear. 2. Hypertension. 3. Nku-golhvva-srzsxmwer diabetes. PLAN: Left knee arthroscopy with partial medial meniscectomy and debridement. MMODL / IJN: [id number] /
[~2022-04-18 10:56] MED LIST changes: -BUPIVACAINE (PF) 0.25% 30 ML VIAL SQ ONE; -DEXAMETHASONE SOD PHOSPHATE 4 MG/ML 1 ML VIAL IV ONE; -LIDOCAINE 1% (10MG/ML) FOR IV START INTRADERMA ONE; -LIDOCAINE 1% INJ 10MG/ML (20 ML MDV) ONE; -MIDAZOLAM 2 MG/2 ML VIAL ONE; -PHENYLEPHRINE-0.9% NACL SYG 1,000 MCG/10 ML SYRINGE ONE; -PROPOFOL 10 MG/ML 20 ML VIAL IV ONE; -Pre Op ABX Message 1 EACH MISC MISCELLANE ONE; -ROCURONIUM 10 MG/ML (5 ML VIAL) IV ONE; -SODIUM CHLORIDE 0.9% 100 ML with ceFAZolin 2,000 MG IV ONE; -SUCCINYLCHOLINE CHLORIDE 100 MG/5 ML SYR IV ONE; +fentaNYL (PF) 50 MCG/ML 2 ML AMP IV PRN; -fentaNYL (PF) 50 MCG/ML 2 ML AMP ONE; -traMADol 50 MG TAB ONE; -traMADol 50 MG TAB PO ONE
[2022-04-18 12:15] LABS: Glucose,Whole Blood 100 mg/dL (70-110)
[2022-04-18] MEDS ORDERED: LACTATED RINGERS 1,000 ML IV ONE (12:15)
[2022-04-18] MEDS ORDERED: ONDANSETRON 4 MG/2 ML VIAL ONE (12:19)
[2022-04-18] MEDS ORDERED: DEXAMETHASONE SOD PHOSPHATE 4 MG/ML 1 ML VIAL IVP ONE (12:21)
[2022-04-18] MEDS ORDERED: HYDROmorphone (PF) 1 MG/ML ONE (12:37)
[2022-04-18] MEDS ORDERED: MIDAZOLAM 2 MG/2 ML VIAL ONE (12:37)
[2022-04-18] MEDS ORDERED: LIDOCAINE 2% INJ 20 MG/ML (2 ML VIAL) ONE (12:37)
[2022-04-18] MEDS ORDERED: fentaNYL (PF) 50 MCG/ML 2 ML AMP ONE (12:37)
[2022-04-18] MEDS ORDERED: BUPIVACAINE (PF) 0.25% 30 ML VIAL SQ ONE ×3 (12:37→13:14)
[2022-04-18] MEDS ORDERED: PROPOFOL 10 MG/ML 20 ML VIAL IV ONE (12:37)
--- NOTE | 2022-04-18 13:27 | P.OP ---
Date of Procedure: 04/18/22 Preoperative Diagnosis: Internal derangement left knee Postoperative Diagnosis: 1. Tear medial and lateral meniscus left knee 2. 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 Reactive synovitis medial, lateral and suprapatellar compartments left knee Procedure(s) Performed: 1. Arthroscopic partial medial and lateral meniscectomy left knee 2. Arthroscopic chondroplasty medial femoral condyle left knee 3. Arthroscopic partial synovectomy medial, lateral and suprapatellar compartments left knee Anesthesia: CHARBELA, local Surgeon: Julio Murillo Estimated Blood Loss (ml): 8 Pathology: none sent Condition: stable Disposition: PACU Indications for Procedure: 51-year-old patient seen with progressive left knee pain. After treatment options were discussed, she elected to proceed with arthroscopy. Operative Findings: See description of procedure Description of Procedure: Patient was taken to the operative suite. Patient underwent a general anesthetic by the department of anesthesia. Patient was given preoperative antibiotics. The left lower extremity was placed in a well-padded arthroscopic leg nguyen. The left leg was prepped and draped in the normal sterile orthopedic fashion. A lateral parapatellar and suprapatellar incision was made. Trochars were inserted. Arthroscopy was initiated. Suprapatellar pouch revealed diffuse thick reactive synovitis. The patellofemoral joint appeared to articulate congruently. There was grade 1 chondromalacia of the patella with no osteochondral tears present. The scope was guided into the medial gutter. No loose bodies or plica were identified The scope was then guided into the medial compartment. A medial parapatellar incision was made. Trocar inserted followed by probe. There was a radial tear posterior medial meniscus. There were grade 1/2 chondromalacia changes medial femoral condyle with some osteochondral flap tears present. There was some thick reactive synovitis anteriorly. I performed a partial medial meniscectomy. I performed a chondroplasty of the medial femoral condyle. I performed a partial synovectomy. The residual meniscus was stable. The residual osteochondral surface was stable. There was good decompre ssion of the synovitis. Scope and probe were then guided into the intercondylar notch. Cruciates were identified, probed and found to be stable. The scope and probe were then guided into lateral compartment.. There was a radial tear posterior horn lateral meniscus. There was some thick reactive some-itis anteriorly. There was no chondromalacia present. I performed a partial lateral meniscectomy. I performed a partial synovectomy. The residual meniscus was probed and was found to be stable. There was good decompression of the synovitis. The scope was in guided back into the suprapatellar compartment. I introduced a motorized shaver into the suprapatellar compartment. I debrided some piecemeal fragments of meniscus I encountered. I performed a partial synovectomy. The shaver was removed. There was good decompression of the synovitis. I took one more look around the entire knee, no residual debris. Instruments were now removed from the joint. The joint was infiltrated with .25% Marcaine. Steri-Strips were applied to the portal sites. Sterile dressings were applied. The patient was placed into a KASH hose. No tourniquet was utilized. The patient was awakened, transferred to a bed and taken to recovery stable satisfactory condition.
[2022-04-18] MEDS: HYDROmorphone 0.5 MG/0.5 ML SYRINGE IVP PRN ×2 (13:28→14:04)
[2022-04-18 13:29] VITALS: RESP 16; TEMP 97.6
[2022-04-18] MEDS ORDERED: KETOROLAC 15 MG/ML 1 ML VIAL IVP ONE (13:36)
[2022-04-18] MEDS ORDERED: METOCLOPRAMIDE 5 MG/ML 2 ML VIAL IVP ONE (14:29)
[2022-04-18 15:07] VITALS: BP 134/84; PULSE 75
[2022-04-18] MEDS ORDERED: HYDROcodone/APAP 5-325MG 1 EACH TAB PO ONE (15:08)
[2022-04-18] MEDS ORDERED: HYDROcodone/APAP 5-325MG 1 EACH TAB ONE (15:09)
== END 2022-04-18 16:01 | disposition home or self-care (01) ==
LOC: OR 10:56
PROVIDERS: ATTEND Orthopaedic Surgery
DX: S83.282A Other tear of lateral meniscus, current injury, left knee, initial encounter (principal); S83.242A Other tear of medial meniscus, current injury, left knee, initial encounter; M94.262 Chondromalacia, left knee; M65.9 Synovitis and tenosynovitis, unspecified; M23.92 Unspecified internal derangement of left knee; I10 Essential (primary) hypertension; E11.9 Type 2 diabetes mellitus without complications; Z79.4 Long term (current) use of insulin; Z79.84 Long term (current) use of oral hypoglycemic drugs; Z79.899 Other long term (current) drug therapy; X58.XXXA Exposure to other specified factors, initial encounter
CPT/HCPCS: 29880; 81025; J2250; J1100; J2765; J2405; J0690; J3010; J1170 ×2; J1885; J2704; J2001

== ENCOUNTER → 2022-10-19 | Outpatient (CLI) | payer OTHER ==
[2022-10-19 17:42] LABS: Basophils # (A) 0.03 X 10*3/uL (0.00-0.10); Basophils % (A) 0.6 %; Eosinophils # (A) 0.16 X 10*3/uL (0.04-0.35); HCT 40.1 % (37.2-46.3); HGB 12.4 g/dL (12.0-15.0); Immature Grans, Automated 0.2 %; Lymphocytes # (A) 1.81 X 10*3/uL (0.90-5.00); MCH 28.2 pg (27.0-32.0); MCHC 30.9 g/dL (32.0-37.0); MCV 91.3 fL (80.0-97.0); Mean Platelet Volume 9.6 fL (9.5-12.2); Monocytes # (A) 0.38 X 10*3/uL (0.20-1.00); Monocytes % (A) 7.1 %; NRBC Per 100 WBC 0 /100 WBCS (0.0-0.0); Neutrophils # (A) 2.93 X 10*3/uL (1.80-7.70); Neutrophils % (A) 55.1 %; Platelet Count 307 X 10*3/uL (140-440); RBC 4.39 X 10*6/uL (4.10-5.20); RDW 14.4 % (11.5-14.5); WBC 5.32 X 10*3/uL (4.50-10.00)
[2022-10-19 17:49] LABS: ALT 14 U/L (8-44); AST 15 U/L (13-35); African American GFR (CKD) 115.3 (60.0-200.0); Albumin 4.2 g/dL (3.8-4.9); Albumin/Globulin Ratio 1.59 (1.60-3.17); Alkaline Phosphatase 54 U/L (41-126); BUN/Creat Ratio 23.68 Ratio (12.00-20.00); Blood Urea Nitrogen 16.6 mg/dL (9.0-27.0); Calcium 9.1 mg/dL (8.7-10.3); Carbon Dioxide 26.5 mmol/L (20.0-27.5); Chloride 103 mmol/L (96-109); Chol/HDL Ratio 6.17 Ratio; Globulin 2.6 g/dL (1.6-3.3); Glucose 110 mg/dL (70-110); LDL Cholesterol,Calculated 217.6 mg/dL (0.0-131.0); Non-African American GFR(CKD) 99.4 (60.0-200.0); Potassium 4.3 mmol/L (3.5-5.5); Sodium 139 mmol/L (135-145); Total Protein 6.8 g/dL (6.2-8.2)
== END | disposition home or self-care (01) ==
LOC: LABWHC1 09:23
PROVIDERS: ATTEND Family Medicine
DX: Z00.00 Encounter for general adult medical examination without abnormal findings (principal); E11.9 Type 2 diabetes mellitus without complications
CPT/HCPCS: 36415; 80053; 80061; 82043; 82570; 83036; 85025

== ENCOUNTER → 2023-02-05 | Outpatient (CLI) | payer OTHER ==
--- NOTE | 2023-02-06 07:53 | MM ---
Reason for Exam: Screening (asymptomatic). Last mammogram was performed 4 year(s) and 11 month(s) ago. Patient History: Menarche at age 13. First Full-Term at age 23. Premenopausal. Maternal grandmother had breast cancer. Maternal aunt had breast cancer. Mother had breast cancer, age 22. Last menstrual period: 01/27/2023 Risk Values: Rose Mary 5 year model risk: 2.0%. NCI Lifetime model risk: 15.9%. Prior Study Comparison: 03/19/2018 Bilateral Diagnostic Ultrasound, [facility]. 03/19/2018 Bilateral Diagnostic Mammogram, [facility]. Tissue Density: The breast tissue is heterogeneously dense. This may lower the sensitivity of mammography. Findings: Analyzed By CAD. There is no suspicious group of microcalcifications within either breast. Benign-appearing round calcifications within both breasts. No new suspicious masses in the right breast. There is an asymmetry demonstrated within the lateral left breast only on the CC view at anterior depth. Overall Assessment: Incomplete: need additional imaging evaluation, BI-RAD 0 Management: Diagnostic Mammogram of the left breast. A clinical breast exam by your physician is recommended on an annual basis and results should be correlated with mammographic findings. [facility] will attempt to contact patient to return for supplemental views and ultrasound if indicated. Note on Rose Mary scores and lifetime risk: 1. A Rose Mary score greater than 3% is considered moderate risk. If this is the case, consider specialist referral to assess eligibility for a risk reducing agent. If overall lifetime risk for the development of breast cancer is 20% or higher, the patient may qualify for future screening with alternating mammogram and breast MRI. Electronically signed and approved by: Tyrell Martinez D.O.
== END | disposition home or self-care (01) ==
LOC: RADMAMWWP 15:32
PROVIDERS: ATTEND Family Medicine
DX: Z12.31 Encounter for screening mammogram for malignant neoplasm of breast (principal); E11.9 Type 2 diabetes mellitus without complications; Z80.3 Family history of malignant neoplasm of breast
CPT/HCPCS: 77063; 77067

== ENCOUNTER → 2023-02-19 | Outpatient (CLI) | payer OTHER ==
--- NOTE | 2023-02-19 07:56 | MM ---
Reason for Exam: Additional evaluation requested from abnormal screening. Last screening mammogram was performed less than 1 month ago. Patient History: Menarche at age 13. First Full-Term at age 23. Premenopausal. Maternal grandmother had breast cancer. Maternal aunt had breast cancer. Mother had breast cancer, age 22. Risk Values: Rose Mary 5 year model risk: 2.0%. NCI Lifetime model risk: 15.9%. Prior Study Comparison: 03/19/2018 Bilateral Diagnostic Mammogram, [facility]. 02/05/2023 Bilateral MG 3D screening mammo w/cad, [facility]. Tissue Density: Left: The breast tissue is heterogeneously dense. This may lower the sensitivity of mammography. Findings: Analyzed By CAD. On compression the area of distortion disperses. However, there is identification of 5 grouped calcifications in the subareolar breast. These may be associated with a small rounded density. These are not clearly identified on the comparison studies. Stereotactic core Biopsy is recommended. Overall Assessment: Suspicious, BI-RAD 4 Management: Stereotactic Core Biopsy of the left breast. A negative mammogram report should not preclude additional follow up of suspicious palpable abnormalities. Patient should continue monthly self breast exam. A clinical breast exam by your physician is recommended on an annual basis and results should be correlated with mammographic findings. Electronically signed and approved by: Anthony Bobby D.O. Radiologis
== END | disposition home or self-care (01) ==
LOC: RADMAMWWP 07:07
PROVIDERS: ATTEND Family Medicine
DX: R92.8 Other abnormal and inconclusive findings on diagnostic imaging of breast (principal); Z80.3 Family history of malignant neoplasm of breast
CPT/HCPCS: 77065; G0279; 77061

== ENCOUNTER → 2023-03-14 | Day surgery (SDC) | payer OTHER | LOC: RADMAMWWP 09:55 | PROVIDERS: ATTEND Family Medicine | DX: Z53.9 Procedure and treatment not carried out, unspecified reason (principal) ==

== ENCOUNTER → 2023-03-28 | Outpatient (CLI) | payer OTHER ==
--- NOTE | 2023-03-28 09:14 | US ---
EXAMINATION TYPE: US abdomen complete DATE OF EXAM: 03/28/2023 COMPARISON: NONE CLINICAL INDICATION: Female, 52 years old with history of R10.9 ABD PAIN; Pt states GB removed 20 yrs ago, having post prandial ABD pain, nausea and diarrhea TECHNIQUE: Multiple sonographic images of the abdomen are obtained. FINDINGS: EXAM MEASUREMENTS: Liver Length: 15.6 cm CBD: 0.5 cm Spleen: 10.4 cm Right Kidney: 11.4 x 5.6 x 5.5 cm Left Kidney: 10.9 x 6.3 x 6.0 cm Pancreas: Obscured by bowel gas Liver: wnl Gallbladder: Surgically absent Evidence for sonographic Yarbrough's sign: No CBD: wnl Spleen: wnl, possible small granuloma Right Kidney: No evidence of hydro, possible small calculi scattered throughout kidney Left Kidney: No evidence of hydro, possible small calculi scattered throughout kidney Upper IVC: wnl Abd Aorta: wnl, mid portion gassed out The liver is homogenous. The intrahepatic portion of the IVC and proximal abdominal aorta are within normal limits. There is no evidence of cholelithiasis. Common bile duct is unremarkable. The visu alized portions of the pancreas are homogenous. The spleen is unremarkable. Kidneys are symmetric a nd free of hydronephrosis. No renal lesions are seen. IMPRESSION: Multiple bilateral nonobstructing renal calculi.
--- NOTE | 2023-03-28 09:29 | USB ---
Reason for Exam: Additional evaluation requested from prior study. Patient History: Menarche at age 13. First Full-Term at age 23. Premenopausal. Maternal grandmother had breast cancer. Maternal aunt had breast cancer. Mother had breast cancer, age 22. Risk Values: Rose Mary 5 year model risk: 2.0%. NCI Lifetime model risk: 15.9%. Technique: Method: Targeted. Prior Study Comparison: 03/19/2018 Bilateral Diagnostic Mammogram, [facility]. 02/05/2023 Bilateral MG 3D screening mammo w/cad, [facility]. 02/19/2023 Left MG 3D work up w/cad , [facility]. Findings: The lateral section of the breast of the left breast was scanned. Imaged: Ultrasound imaging of: All 4 quadrants, the retroareolar region and axilla. Lesion correlating with mammography demonstrates a anechoic/hypoechoic lesion with small hyperechoic foci around the periphery felt to correlate with calcification on mammography. This is located at 2:00 5 cm from the nipple and measures 4 x 3 x 4 mm. Overall Assessment: Probably benign, BI-RAD 3 Management: Diagnostic Breast Ultrasound of the left breast in 3 months. A clinical breast exam by your physician is recommended on an annual basis and results should be correlated with mammographic findings. This exam should not preclude additional follow-up of suspicious palpable abnormalities. Results were given to the patient verbally at the time of exam. Electronically signed and approved by: Juan Carlos Hanson DO
== END | disposition home or self-care (01) ==
LOC: RADUSWWP 06:57
PROVIDERS: ATTEND Family Medicine
DX: N20.0 Calculus of kidney (principal); R11.0 Nausea; R19.7 Diarrhea, unspecified; Z80.3 Family history of malignant neoplasm of breast; Z90.49 Acquired absence of other specified parts of digestive tract
CPT/HCPCS: 76700

== ENCOUNTER 2024-11-25 17:34 | Emergency (ER) | payer BC, OTHER ==
[2024-11-25] MEDS: MORPHINE SULFATE 4 MG/ML SYRINGE IVP STA (18:26)
[2024-11-25] MEDS: SODIUM CHLORIDE 0.9% 1,000 ML IV ONE (18:28)
[2024-11-25] MEDS: ONDANSETRON 4 MG/2 ML VIAL IVP STA (18:28)
[2024-11-25 18:58] LABS: ALT 27 U/L (4-34); AST 29 U/L (14-36); African American GFR (CKD) >90 (>60 ml/min/1.73 sqM); Albumin 4.5 g/dL (3.5-5.0); Alkaline Phosphatase 65 U/L (38-126); Amylase 58 U/L (30-110); Anion Gap 14 mmol/L; Blood Urea Nitrogen 12 mg/dL (7-17); Calcium 9.5 mg/dL (8.4-10.2); Carbon Dioxide 21 mmol/L (22-30); Chloride 102 mmol/L (98-107); Glucose 149 mg/dL (74-99); Lipase 169 U/L (23-300); Non-African American GFR(CKD) >90 (>60 ml/min/1.73 sqM); Potassium 3.3 mmol/L (3.5-5.1); Sodium 137 mmol/L (137-145); Total Bilirubin 1.1 mg/dL (0.2-1.3); Total Protein 7.5 g/dL (6.3-8.2)
[2024-11-25 19:21] LABS: Basophils # (A) 0.03 10*3/uL (0.00-0.10); Basophils % (A) 0.3 %; Eosinophils # (A) 0.02 10*3/uL (0.04-0.35); Eosinophils % (A) 0.2 %; HGB 11.9 g/dL (12.0-15.0); Lymphocytes % (A) 16.8 %; MCH 29.3 pg (27.0-32.0); MCV 86.2 fL (80.0-97.0); Mean Platelet Volume 9.4 fL (9.5-12.2); Monocytes # (A) 0.61 10*3/uL (0.20-1.00); Monocytes % (A) 6.4 %; Neutrophils # (A) 7.27 10*3/uL (1.80-7.70); Neutrophils % (A) 76.1 %; Platelet Count 229 10*3/uL (140-440); RBC 4.06 10*6/uL (4.10-5.20); WBC 9.55 10*3/uL (4.50-10.00)
[2024-11-25 20:36] LABS: Appearance,Urine Clear (Clear); Bilirubin,Urine Negative (Negative); Blood,Urine Negative (Negative); Color,Urine Colorless; Glucose,Urine (UA) Negative (Negative); Ketones,Urine 1+ (Negative); Leukocyte Esterase,Urine Negative (Negative); Nitrite,Urine Negative (Negative); Protein,Urine Negative (Negative); Specific Gravity,Urine 1.007 (1.001-1.035); Urobilinogen,Urine <2.0 mg/dL (<2.0)
--- NOTE | 2024-11-25 20:37 | CT ---
EXAMINATION TYPE: CT abdomen pelvis w con DATE OF EXAM: 11/25/2024 7:35 PM COMPARISON: None. CLINICAL INDICATION: Female, 54 years old with history of abdominal pain, Pt presents to ED for c/o R LQ pain starting at 4am this morning with bright red blood in stools. TECHNIQUE: Axial images were obtained from above the diaphragm to the pubic rami in the axial plane a t 5 mm thick sections. Reconstructed images are reviewed on the computer in the coronal plane. CONTRAST: 100 cc mL of Isovue 300. Study performed without Oral Contrast DLP: 1202.7 mGycm, Automated exposure control for dose reduction was used. FINDINGS: Limited CT sections are obtained the lung bases. There is a 0.3 cm nodule right lung base. Series [address] ABDOMEN: Liver: Normal Spleen: Normal Pancreas: Normal Adrenal glands: The adrenal glands are normal. Gallbladder: Surgically absent Kidneys: No masses are evident. No hydronephrosis is present. No cysts are present. Delayed images were obtained through the kidneys, which remain unremarkable. Aorta: Normal Inferior vena cava: Normal. CT PELVIS: There is wall thickening and adjacent inflammatory changes of the splenic flexure and descending colo n to the proximal sigmoid colon compatible with colitis. This study is with limited oral contrast Appendix: Normal as visualized. Urinary bladder: Normal. Genitourinary structures: Uterus is normal adnexa appear normal. There may be a 1.8 cm cyst on the le ft ovary is could be related to the nearby small bowel loop. Osseous structures: No suspicious lytic or sclerotic lesions. IMPRESSION: 1. Colitis from the splenic flexure to the proximal sigmoid colon. 2. Punctate nodule right lung base. Follow-up chest CT recommended. [facility], , 11/25/2024 8:34 PM
--- NOTE | 2024-11-25 21:11 | ED ---
Abdominal Pain HPI - General Chief Complaint: Abdominal Pain Stated Complaint: Abd pain,Blood in stool Time Seen by Provider: 11/25/24 17:39 Source: patient Mode of arrival: ambulatory Limitations: no limitations - History of Present Illness Initial Comments: 54-year-old female presenting with chief complaint of abdominal pain. Started early this morning. It feels like a cramping pain that is worse in the right lower quadrant. She also admits to bright red blood in her stools. Admits to nausea. No fever. Surgical history includes cholecystectomy and section as well as tubal ligation. No chest pain or difficulty breathing. No urinary symptoms. Patient has been feeling sweaty and clammy. States that the pain waxes and wanes. This is a sharp pain. - Related Data Home Medications Medication Instructions Recorded Confirmed hydroCHLOROthiazide [Hydrodiuril] 25 mg PO QAM 04/13/21 02/21/23 lisinopriL [Prinivil] 20 mg PO QAM 04/13/21 02/21/23 Pioglitazone [Actos] 30 mg PO QAM 04/16/22 02/21/23 Semaglutide [Ozempic] 1 mg SQ WEEKLY 02/21/23 02/21/23 Previous Rx's Medication Instructions Recorded Amoxic-Pot Clav 875-125Mg 1 tab PO Q12HR 7 Days #14 tab 11/25/24 [Augmentin 875-125] Fluconazole [Diflucan] 150 mg PO ONCE #1 tab 11/25/24 Allergies Allergy/AdvReac Type Severity Reaction Status Date / Time No Known Allergies Allergy Verified 11/25/24 17:37 Review of Systems ROS Statement: Those systems with pertinent positive or pertinent negative responses have been documented in the HPI. ROS Other: All systems not noted in ROS Statement are negative. Past Medical History Past Medical History: Diabetes Mellitus, Hypertension Additional Past Medical History / Comment(s): hx kidney stones, occasional edema lower extremities. History of Any Multi-Drug Resistant Organisms: None Reported Past Surgical History: Section, Cholecystectomy, Orthopedic Surgery, Tubal Ligation Additional Past Surgical History / Comment(s): right breast surgery: 2000,3 left knee surg,2 rt knee surg. Past Anesthesia/Blood Transfusion Reactions: No Reported Reaction Past Psychological History: No Psychological Hx Reported Smoking Status: Never smoker Past Alcohol Use History: None Reported Past Drug Use History: None Reported - Past Family History Mother Family Medical History: Cancer Additional Family Medical History / Comment(s): Breast cancer: at the age of 22. Daughter(s) Family Medical History: Cancer General Exam Limitations: no limitations General appearance: alert, in no apparent distress Head exam: Present: atraumatic, normocephalic, normal inspection Eye exam: Present: normal appearance, EOMI Neck exam: Present: normal inspection. Absent: meningismus Respiratory exam: Present: normal lung sounds bilaterally. Absent: respiratory distress, wheezes, rales, rhonchi, stridor Cardiovascular Exam: Present: regular rate, normal rhythm, normal heart sounds. Absent: systolic murmur, diastolic murmur, rubs, gallop, clicks GI/Abdominal exam: Present: soft, tenderness (Discomfort). Absent: distended, guarding, rebound, rigid Neurological exam: Present: alert, oriented X3 Psychiatric exam: Present: normal affect, normal mood Skin exam: Present: warm, dry, normal color Course Vital Signs 11/25/24 11/25/24 17:35 21:31 Temperature 97.8 F 98.5 F Pulse Rate 98 73 Respiratory 26 H 18 Rate Blood Pressure 184/102 176/92 O2 Sat by Pulse 97 94 L Oximetry Medical Decision Making - Medical Decision Making Was pt. sent in by a medical professional or institution ([facility], VOCATIONAL TEACHER, urgent care, hospital, or senior care...) When possible be specific @ -No Did you speak to anyone other than the patient for history (EMS, parent, family, police, friend...)? What history was obtained from this source @ -No Did you review nursing and triage notes (agree or disagree)? Why? @ -I reviewed and agree with nursing and triage notes Were old charts reviewed (outside hosp., previous admission, EMS record, old EKG, old radiological studies, urgent care reports/EKG's, senior care records)? Report findings @ -No old charts were reviewed Differential Diagnosis (chest pain, altered mental status, abdominal pain women, abdominal pain men, vaginal bleeding, weakness, fever, dyspnea, syncope, headache, dizziness, GI bleed, back pain, seizure, CVA, palpatations, mental health, musculoskeletal)? @ -MDM Differential Abdominal Pain Women: Appendicitis, Cholecystitis, diverticulosis, ischemic bowel, pancreatitis, hepatitis, UTI, gastroenteritis, AAA, incarcerated hernia, bowel obstruction, constipation, inflammatory bowel, hepatitis, peptic ulcer disease, splenic infarction, perforated viscus, vulvitis, ovarian torsion, PID, kidney stone, placenta abruption... This is not meant to be an all-inclusive list EKG interpreted by me (3pts min.). @ -EKG shows sinus rhythm ventricular rate 89. WA interval 136. QRS 104. QT 361. QTc 408 X-rays interpreted by me (1pt min.). @ -None done CT interpreted by me (1pt min.). @ -CT shows colitis from the splenic flexure to the proximal sigmoid colon. Punctate nodule right lung base. Follow-up chest CT recommended U/S interpreted by me (1pt. min.). @ -None done What testing was considered but not performed or refused? (CT, X-rays, U/S, labs)? Why? @ -None What meds were considered but not given or refused? Why? @ -None Did you discuss the management of the patient with other professionals (professionals i.e. , PA, VOCATIONAL TEACHER, lab, RT, psych nurse, older adult social work specialist, stitcher hand, teacher, juvenile corrections officer, catalytic case operator)? Give summary @ -No Was smoking cessation discussed for >3mins.? @ -No Was critical care preformed (if so, how long)? @ -No Were there social determinants of health that impacted care today? How? (Homelessness, low income, unemployed, alcoholism, drug addiction, tra nsportation, low edu. Level, literacy, decrease access to med. care, residential, rehab)? @ -No Was there de-escalation of care discussed even if they declined (Discuss DNR or withdrawal of care, Hospice)? DNR status @ -No What co-morbidities impacted this encounter? (DM, HTN, Smoking, COPD, CAD, Cancer, CVA, ARF, Chemo, Hep., AIDS, mental health diagnosis, sleep apnea, morbid obesity)? @ -None Was patient admitted / discharged? Hospital course, mention meds given and route, prescriptions, significant lab abnormalities, going to OR and other pertinent info. @ -54-year-old female presenting with chief complaint of abdominal pain. She also has blood in her stool today. History and physical examination are conducted. Patient is given pain meds antiemetics and IV fluids. Potassium 3.3, patient is given 40 mEq of K-Dur. Lipase is WNL. Urine shows no infectious process or bleeding. No leukocytosis. CT is positive for colitis. Patient is educated on today's findings. She will be treated with Augmentin. She is agreeable with this plan. Follow-up with PCP. Report back to ER with any new or worsening symptoms. Discussed return parameters and answered all questions. Patient conveyed verbal understanding and agreed to the plan. I discussed this case in detail with my attending Dr. Saavedra Undiagnosed new problem with uncertain prognosis? @ -No Drug Therapy requiring intensive monitoring for toxicity (Heparin, Nitro, Insulin, Cardizem)? @ -No Were any procedures done? @ -No Diagnosis/symptom? @ -Colitis Acute, or Chronic, or Acute on Chronic? @ -Acute Uncomplicated (without systemic symptoms) or Complicated (systemic symptoms)? @ -Uncomplicated Side effects of treatment? @ -No Exacerbation, Progression, or Severe Exacerbation? @ -No Poses a threat to life or bodily function? How? (Chest pain, [place], [place], pneumonia, PE, COPD, DKA, ARF, appy, cholecystitis, CVA, Diverticulitis, Homicidal, Suicidal, threat to staff... and all critical care pts) @ -Seemingly low likelihood at this time - Lab Data Result diagrams: 11/25/24 19:04 11/25/24 18:26 Lab Results 11/25/24 11/25/24 11/25/24 Range/Units 18:26 18:26 18:26 WBC (4.50-10.00) 10*3/uL RBC (4.10-5.20) 10*6/uL Hgb (12.0-15.0) g/dL Hct (37.2-46.3) % MCV (80.0-97.0) fL MCH (27.0-32.0) pg MCHC (32.0-37.0) g/dL Plt Count (140-440) 10*3/uL MPV (9.5-12.2) fL Immature Gran % (Auto) % Neutrophils % % Lymphocytes % % Monocytes % % Eosinophils % % Basophils % % Immature Gran # (0.00-0.04) 10*3/uL Neutrophils # (1.80-7.70) 10*3/uL Lymphocytes # (0.90-5.00) 10*3/uL Monocytes # (0.20-1.00) 10*3/uL Eosinophils # (0.04-0.35) 10*3/uL Basophils # (0.00-0.10) 10*3/uL Sodium 137 (137-145) mmol/L Potassium 3.3 L (3.5-5.1) mmol/L Chloride 102 (98-107) mmol/L Carbon Dioxide 21 L (22-30) mmol/L Anion Gap 14 mmol/L BUN 12 (7-17) mg/dL Creatinine 0.56 (0.52-1.04) mg/dL Est GFR (CKD-EPI)AfAm >90 (>60 ml/min/1.73 sqM) Est GFR (CKD-EPI)NonAf >90 (>60 ml/min/1.73 sqM) Glucose 149 H (74-99) mg/dL Plasma Lactic Acid Truong 1.8 (0.7-2.0) mmol/L Calcium 9.5 (8.4-10.2) mg/dL Total Bilirubin 1.1 (0.2-1.3) mg/dL AST 29 (14-36) U/L ALT 27 (4-34) U/L Alkaline Phosphatase 65 (38-126) U/L Troponin I <0.012 (0.000-0.034) ng/mL Total Protein 7.5 (6.3-8.2) g/dL Albumin 4.5 (3.5-5.0) g/dL Amylase 58 (30-110) U/L Lipase 169 (23-300) U/L Urine Color Urine Appearance (Clear) Urine pH (5.0-8.0) Ur Specific Remus (1.001-1.035) Urine Protein (Negative) Urine Glucose (UA) (Negative) Urine Ketones (Negative) Urine Blood (Negative) Urine Nitrite (Negative) Urine Bilirubin (Negative) Urine Urobilinogen (<2.0) mg/dL Ur Leukocyte Esterase (Negative) 11/25/24 11/25/24 Range/Units 19:04 20:29 WBC 9.55 (4.50-10.00) 10*3/uL RBC 4.06 L (4.10-5.20) 10*6/uL Hgb 11.9 L (12.0-15.0) g/dL Hct 35.0 L (37.2-46.3) % MCV 86.2 (80.0-97.0) fL MCH 29.3 (27.0-32.0) pg MCHC 34.0 (32.0-37.0) g/dL Plt Count 229 (140-440) 10*3/uL MPV 9.4 L (9.5-12.2) fL Immature Gran % (Auto) 0.2 % Neutrophils % 76.1 % Lymphocytes % 16.8 % Monocytes % 6.4 % Eosinophils % 0.2 % Basophils % 0.3 % Immature Gran # 0.02 (0.00-0.04) 10*3/uL Neutrophils # 7.27 (1.80-7.70) 10*3/uL Lymphocytes # 1.60 (0.90-5.00) 10*3/uL Monocytes # 0.61 (0.20-1.00) 10*3/uL Eosinophils # 0.02 L (0.04-0.35) 10*3/uL Basophils # 0.03 (0.00-0.10) 10*3/uL Sodium (137-145) mmol/L Potassium (3.5-5.1) mmol/L Chloride (98-107) mmol/L Carbon Dioxide (22-30) mmol/L Anion Gap mmol/L BUN (7-17) mg/dL Creatinine (0.52-1.04) mg/dL Est GFR (CKD-EPI)AfAm (>60 ml/min/1.73 sqM) Est GFR (CKD-EPI)NonAf (>60 ml/min/1.73 sqM) Glucose (74-99) mg/dL Plasma Lactic Acid Truong (0.7-2.0) mmol/L Calcium (8.4-10.2) mg/dL Total Bilirubin (0.2-1.3) mg/dL AST (14-36) U/L ALT (4-34) U/L Alkaline Phosphatase (38-126) U/L Troponin I (0.000-0.034) ng/mL Total Protein (6.3-8.2) g/dL Albumin (3.5-5.0) g/dL Amylase (30-110) U/L Lipase (23-300) U/L Urine Color Colorless Urine Appearance Clear (Clear) Urine pH 6.0 (5.0-8.0) Ur Specific Remus 1.007 (1.001-1.035) Urine Protein Negative (Negative) Urine Glucose (UA) Negative (Negative) Urine Ketones 1+ H (Negative) Urine Blood Negative (Negative) Urine Nitrite Negative (Negative) Urine Bilirubin Negative (Negative) Urine Urobilinogen <2.0 (<2.0) mg/dL Ur Leukocyte Esterase Negative (Negative) Disposition Clinical Impression: Colitis Disposition: HOME SELF-CARE Condition: Good Instructions (If sedation given, give patient instructions): Colitis (ED) Additional Instructions: Follow-up with PCP. Report back to ER with any new or worsening symptoms. Take medication as prescribed. Prescriptions: Amoxic-Pot Clav 875-125Mg [Augmentin 875-125] 1 tab PO Q12HR 7 Days #14 tab Fluconazole [Diflucan] 150 mg PO ONCE #1 tab Is patient prescribed a controlled substance at d/c from ED?: No Referrals: Faizan Hurtado MD [Primary Care Provider] - 1-2 days Time of Disposition: 21:11
[2024-11-25] MEDS: KETOROLAC 15 MG/ML 1 ML VIAL IVP STA (21:23)
[2024-11-25] MEDS: AMOXIC-POT CLAV 875-125MG 1 EACH TAB PO STA (21:23)
[2024-11-25] MEDS: POTASSIUM CHLORIDE ER 20 MEQ TAB.ER PO STA (21:26)
[2024-11-25 21:32] VITALS: BP 176/92; PULSE 73; RESP 18; TEMP 98.5
== END 2024-11-25 21:48 | disposition home or self-care (01) ==
LOC: EC 17:34
DX: K52.9 Noninfective gastroenteritis and colitis, unspecified (principal)
CPT/HCPCS: 36415; 93005; 80053; 82150; 83605; 83690; 84484; 85025; 81003; 74177; 99284; 96374; 96375 ×2; 96361; J2270; J2405; J1885; Q9967